=== PATIENT | female | born 1945 | race Two or more races ===

== ENCOUNTER → 2016-12-13 | Outpatient (REF) | payer MEDICARE, OTHER | LOC: M SMT 13:37 | PROVIDERS: ATTEND Nurse Practitioner Women's Health | DX: R31.0 Gross hematuria (principal) | CPT/HCPCS: 81001; 87086; 88108; G0463 ==

== ENCOUNTER → 2016-12-20 | Outpatient (CLI) | payer MEDICARE, OTHER ==
[~2016-12-20] MED LIST: ISOVUE-370 76% 100ML VIAL (Q9967) As Ordered ONE
--- NOTE | 2016-12-20 14:47 | REP ---
CT urogram without and with IV contrast: History: Gross hematuria. No comparison CT study. CT contrast dose: 100 mL of intravenous Isovue 370. CT findings: Preliminary digital superintendent of generation radiograph demonstrates an unremarkable bowel gas pattern. There are clips in right upper quadrant. The lung bases are essentially clear. There is mild diffuse fatty infiltration of the liver. No focal liver lesion is seen. The spleen is unremarkable. The gallbladder is surgically absent. There are one or two pancreatic calcifications. No mass or cyst is seen. No adrenal lesion is observed. There is no evidence of intrarenal calculus or mass on either side. No hydronephrosis is seen. No significant cyst is seen. Delayed scan images show no filling defect in the collecting system. No ureteral abnormality is observed on either side. No bladder mass or bladder calculus is observed. There is some left colonic diverticulosis. No abdominal wall defect is seen. There is however a small mass or nodule superficial to the rectus abdominis muscle belly on the left side above the level of the umbilicus. This measures 2.5 cm craniocaudal by 1.2 cm anteroposterior by 2.1 cm medial to lateral. There is some adjacent linear fibrosis extending out to the overlying skin. This may be an area of nodular fibrosis postoperatively. Question whether the cholecystectomy was performed laparoscopically. Alternatively, this could be a small desmoid tumor. There is no evidence of bony destructive lesion. Exam is otherwise unremarkable. Impression: 1. No evidence of urinary tract calculus, mass or hydronephrosis. 2. Mild diffuse fatty infiltration of the liver. 3. Postcholecystectomy. 4. Small anterior wall deep subcutaneous fat nodule adjacent to the left rectus abdominis muscle in the left upper quadrant. Small desmoid tumor versus nodular fibrosis. Clinical followup and possibly sonography suggested. Signed by José Miguel Arambula MD 12/20/2016 03:58 P
== END ==
LOC: M RAD 12:28
PROVIDERS: ATTEND Nurse Practitioner Women's Health
DX: R31.0 Gross hematuria (principal)
CPT/HCPCS: 74178; Q9967

== ENCOUNTER → 2020-11-22 | Outpatient (REF) | payer MEDICARE, OTHER | LOC: M LAB REF 13:12 | PROVIDERS: ATTEND Nurse Practitioner Family | DX: E83.42 Hypomagnesemia (principal) ==

== ENCOUNTER → 2021-08-22 | Outpatient (REF) | payer MEDICARE, OTHER ==
[2021-08-22 17:27] LABS: BASO % 0.5 % (0.0-1.0); EOS # 0.1 10^3/uL (0.0-0.5); EOS % 0.8 % (0.0-3.0); HEMATOCRIT 48.2 % (36.0-47.0); HEMOGLOBIN 15.8 g/dl (12.0-15.5); LYMPH # 2.4 10^3/uL (1.5-5.0); LYMPH % 28.6 % (24.0-44.0); MEAN CORPUSCULAR HEMOGLOBIN 32.2 pg (27.0-33.0); MEAN CORPUSCULAR HGB CONC 32.8 g/dl (32.0-36.5); MEAN CORPUSCULAR VOLUME 98.2 fl (80.0-96.0); MONO # 0.9 10^3/uL (0.0-0.8); MONO % 10.4 % (2.0-8.0); NEUTROPHILS % 59.2 % (36.0-66.0); PLATELET COUNT, AUTOMATED 282 10^3/uL (150-450); RED BLOOD COUNT 4.91 10^6/uL (4.00-5.40); WHITE BLOOD COUNT 8.5 10^3/uL (4.0-10.0)
[2021-08-22 17:39] LABS: INR 1.26; PROTHROMBIN TIME 16.2 SECONDS (12.7-14.5)
[2021-08-22 17:57] LABS: MALB URINE SIEMENS 14.3 MG/L
[2021-08-22 18:00] LABS: ALBUMIN 3.4 GM/DL (3.2-5.2); BILIRUBIN,TOTAL 0.9 MG/DL (0.2-1.0); CALCIUM LEVEL 9.6 MG/DL (8.8-10.2); CHOLESTEROL RISK RATIO 3.951 (<5); CREATININE FOR GFR 1.16 MG/DL (0.55-1.30); DIGOXIN LEVEL 0.6 NG/ML (0.5-2.0); FREE T3 3.1 PG/ML (2.2-4.0); FREE T4 0.96 NG/DL (0.76-1.46); GLOMERULAR FILTRATION RATE 48.2 (>39); POTASSIUM SERUM 4.8 MEQ/L (3.5-5.1); THYROID STIMULATING HORMONE 0.841 uIU/ML (0.358-3.740); TOTAL PROTEIN 7.8 GM/DL (6.4-8.2)
[2021-08-22 18:43] LABS: TOTAL 25(OH) VITAMIN D 33.8 NG/ML (30.0-100.0)
== END ==
LOC: M LAB REF 17:01
PROVIDERS: ATTEND Family Medicine
DX: I10 Essential (primary) hypertension (principal); I48.20 Chronic atrial fibrillation, unspecified; E66.8 Other obesity; N18.31 Chronic kidney disease, stage 3a; E55.9 Vitamin D deficiency, unspecified